=== PATIENT | female | born 1955 | race Caucasian/White ===

== ENCOUNTER 2021-05-28 09:18 | Emergency (ER) | payer MEDICARE, OTHER ==
[~2021-05-28] VITALS: Ht 167.6 cm; Wt 90.7 kg
[2021-05-28] MEDS ORDERED: MELOXICAM7.5 MG PO (09:29)
[2021-05-28] MEDS ORDERED: LISINOPRIL5 MG PO (09:29)
[2021-05-28 10:31] VITALS: BP 171/88
== END 2021-05-28 10:38 | disposition home or self-care (01) ==
LOC: M.ERS 09:18
DX: J02.9 Acute pharyngitis, unspecified (principal); I10 Essential (primary) hypertension; Z88.0 Allergy status to penicillin

== ENCOUNTER 2021-08-21 10:59 | Emergency (ER) | payer MEDICARE ==
[~2021-08-21] VITALS: Ht 167.6 cm; Wt 117.9 kg
[~2021-08-21 10:59] MED LIST: LISINOPRIL5 MG PO; MELOXICAM7.5 MG PO
[2021-08-21] MEDS ORDERED: OMEPRAZOLE20 M2 PO (11:15)
[2021-08-21] MEDS ORDERED: ZYRTEC10 M5 PO (11:15)
[2021-08-21 11:56] LABS: ABSOLUTE BASOPHILS 0.1 thou/uL (0.0-0.2); ABSOLUTE EOSINOPHILS 0.2 thou/uL (0.0-0.7); ABSOLUTE LYMPHOCYTES 1.7 thou/uL (0.8-5.3); ABSOLUTE MONOCYTES 0.6 thou/uL (0.0-1.2); ABSOLUTE NEUTROPHILS 3.3 thou/uL (1.6-8.1); BASOPHILS 1.1 %; HEMATOCRIT 37.3 % (37.0-47.0); HEMOGLOBIN 12.5 gm/dL (12.0-15.0); LYMPHOCYTES 29.3 %; MCH 29.8 pg (26.0-34.0); MCHC 33.5 g/dL (28.0-37.0); MCV 89.1 fL (80.0-100.0); MONOCYTES 9.4 %; NUCLEATED RBCS 0 /100WBC; PLATELET COUNT* 249 thou/uL (150-400); POLYS 56.2 %; RBC 4.19 mil/uL (4.20-5.00); RDW-CV 13.6 % (10.5-14.5); WBC 5.9 thou/uL (4.0-11.0)
[2021-08-21 12:12] LABS: CALCIUM 9.2 mg/dL (8.5-10.1); POTASSIUM 3.6 mmol/L (3.5-5.1)
[2021-08-21 12:16] LABS: ALBUMIN 3.8 g/dL (3.4-5.0); TOTAL BILIRUBIN 0.7 mg/dL (<0.1-1.0); TOTAL PROTEIN 8.3 g/dL (6.4-8.2)
[2021-08-21 12:36] VITALS: BP 164/88
--- NOTE | 2021-08-22 13:46 | EKG ---
[place] [address] ELECTROCARDIOGRAM REPORT Name: GOODANTONIO BERNARDO Room: [facility] [place]#: [id number] Admission: 08/21/21 Attend Phys: Discharge: 08/21/21 Date of : 55 Date of Service: 08/21/21 1107 Report #: [id number] THIS REPORT FOR: //name// [facility] ED Test Date: 2021-08-21 Test Time: 11:07:05 Pat Name: ANTONIO FUNK Department: Room: Gender: Marketing Financial Analyst: : 1955 Requested By: Kyrie Peñaloza Order Number: [id number] MD: Van Everett Measurements Intervals [place] Rate: 58 P: 24 MI: 167 QRS: 13 QRSD: 101 T: 12 QT: 452 QTc: 445 Interpretive Statements Sinus rhythm Low voltage, precordial leads Borderline T abnormalities, anterior leads No previous ECG available for comparison Electronically Signed On 08-22-2021 13:46:04 CDT by Van Everett [email or web address] <ELECTRONICALLY SIGNED> By: Van Everett MD, [facility] 08/22/21 1346 1107 1107 Van Everett MD, [facility] /EPI
== END 2021-08-21 12:36 | disposition home or self-care (01) ==
LOC: M.ERS 10:59
PROVIDERS: Family Medicine
DX: I10 Essential (primary) hypertension (principal); M19.90 Unspecified osteoarthritis, unspecified site; Z79.899 Other long term (current) drug therapy; Z88.0 Allergy status to penicillin